=== PATIENT | male | born 1950 | race Caucasian/White ===

== ENCOUNTER 2024-05-12 17:31 | Emergency (ER) | payer OTHER ==
[2024-05-12 17:36] VITALS: BP 154/98; PULSE 83; RESP 18; TEMP 98.3
[2024-05-12 19:22] LABS: BASO % 0.5 % (0-2.0); EOS % 0.5 % (0-4.5); HEMATOCRIT 46.3 % (35.4-49); HEMOGLOBIN 14.7 GM/dL (11.7-16.9); LYMPH % 17.6 % (8-40); MCH 27.7 pg (25.7-33.7); MCHC 31.8 g/dl (32.0-35.9); MEAN CELL VOLUME 86.9 fl (80-96); MEAN PLT VOLUME 7.6 fl (7.5-11.1); MONO % 10.6 % (3.8-10.2); NEUT % 70.8 % (42.8-82.8); PLATELET COUNT 179 10^3/uL (134-434); RBC 5.33 M/mm3 (4.00-5.60); RDW 18.1 % (11.9-15.9); WHITE BLOOD COUNT 6.5 K/mm3 (4.0-10.0)
[2024-05-12 19:33] LABS: INR 0.96 (0.83-1.09); PROTHROMBIN TIME (PATIENT) 11.1 SEC (9.7-13.0)
[2024-05-12 19:36] LABS: ACTIVATED PTT 29.2 SECONDS (25.2-36.5)
[2024-05-12 19:40] LABS: POTASSIUM 5.2 mmol/L (3.5-5.1)
[2024-05-12 19:42] LABS: ALBUMIN 3.5 g/dl (3.4-5.0); BLOOD UREA NITROGEN 35.8 mg/dL (7-18); CALCIUM 8.9 mg/dL (8.5-10.1)
[2024-05-12 19:45] LABS: PHOSPHOROUS 2.6 mg/dL (2.5-4.9)
[2024-05-12 19:46] LABS: BILIRUBIN,TOTAL 1.1 mg/dL (0.2-1)
[2024-05-12 19:47] LABS: TOT PROT 6.3 g/dl (6.4-8.2)
[2024-05-12] MEDS ORDERED: METOCLOPRAMIDE HCL INJECTION 10 MG/2 ML VIAL ONE (21:55)
[2024-05-12] MEDS ORDERED: MAG HYDROX/AL HYDROX/SIMETH 30 ML UNIT-DOSE CUP ONE (21:56)
[2024-05-12] MEDS ORDERED: FAMOTIDINE 20 MG/50 ML IVPB 20 MG/50 ML MG IVPB ONE (21:56)
[2024-05-12] MEDS: MAG HYDROX/AL HYDROX/SIMETH 30 ML UNIT-DOSE CUP PO ONE (22:10)
[2024-05-12] MEDS: METOCLOPRAMIDE HCL INJECTION 10 MG/2 ML VIAL IVPUSH ONE (22:11)
[2024-05-12] MEDS: FAMOTIDINE 20 MG/50 ML IVPB 20 MG/50 ML MG IVPB ONE (22:11)
[2024-05-12] MEDS ORDERED: HALOPERIDOL LACTATE 5 MG/ML ONE (22:55)
[2024-05-12] MEDS: HALOPERIDOL LACTATE 5 MG/ML IM ONE (23:05)
== END 2024-05-13 00:01 | disposition home or self-care (01) ==
LOC: JER 17:31
PROC: 3E033GC Introduction of Other Therapeutic Substance into Peripheral Vein, Percutaneous Approach (ICD-10-PCS; principal; 2024-05-12)
PROC: 3E033GC Introduction of Other Therapeutic Substance into Peripheral Vein, Percutaneous Approach (ICD-10-PCS; 2024-05-12)
PROC: 3E023GC Introduction of Other Therapeutic Substance into Muscle, Percutaneous Approach (ICD-10-PCS; 2024-05-12)
DX: K44.9 Diaphragmatic hernia without obstruction or gangrene (principal); R06.6 Hiccough; R06.02 Shortness of breath
CPT/HCPCS: 36415; 70450-TC; 71045-TC-FY; 80053; 80158; 83690; 83735; 84100; 84484; 85025; 85610; 85730; 93005; 93010; 96365; 96372; 96375; 99284-25; G6056